=== PATIENT | male | born 1950 | race Caucasian/White ===

== ENCOUNTER → 2025-01-08 | Outpatient (CLI) | payer MEDICARE | END | disposition home or self-care (01) | LOC: LAB 11:08 | PROVIDERS: ATTEND Internal Medicine | DX: I10 Essential (primary) hypertension (principal); Z00.00 Encounter for general adult medical examination without abnormal findings | CPT/HCPCS: 36415; 84439; 84443 ==

== ENCOUNTER → 2025-01-16 | Outpatient (CLI) | payer OTHER ==
[~2025-01-16] MED LIST: AMIO200T60 PO; APIX5TAB PO; CARV12.5 PO; DOXA2TAB2 PO; DOXA4TAB3 PO; DULO40CA2 PO; FINA5TAB4 PO; HYDR12.58 PO; MELO15TA24 PO; OLME40TA PO; TADA5TAB PO; TAMS-54 PO
[2025-01-16] MEDS: LEXISCAN IV ONE (11:34)
== END | disposition home or self-care (01) ==
LOC: RAD 09:36
PROVIDERS: ATTEND Internal Medicine
DX: I34.0 Nonrheumatic mitral (valve) insufficiency (principal); I10 Essential (primary) hypertension; N28.81 Hypertrophy of kidney; R53.83 Other fatigue; Z79.899 Other long term (current) drug therapy
CPT/HCPCS: 78452; 93306; 93975; 93017; J2785; A9500

== ENCOUNTER 2025-03-06 07:06 | Day surgery (SDC) | payer OTHER ==
[~2025-03-06] VITALS: Ht 188 cm; Wt 109.8 kg
[~2025-03-06 07:06] MED LIST changes: -DOXA4TAB3 PO; +NS 1000ML 1,000 ML ONE
[2025-03-06 07:20] VITALS: BP 141/81; PULSE 51; RESP 18; TEMP 96.3; O2SAT 98
[2025-03-06] MEDS: NS 1000ML 1,000 ML IV ONE (07:35)
[2025-03-06 07:56] LABS: BASOPHIL # 0.1 10^3/uL (0.0-0.1); BASOPHIL % 0.9 % (0.2-1.2); EOSINOPHIL # 0.2 10^3/uL (0.0-0.2); EOSINOPHIL % 3.8 % (0.0-5.0); HEMATOCRIT(ML) 46.5 % (37.0-53.0); IG % 0.40 % (0.00-0.50); LYMPHOCYTES # 1.74 10^3/uL1 (1.0-4.8); LYMPHOCYTES % 31.4 % (24.0-44.0); MEAN CORP HGB 30.3 pg (26-34); MEAN CORP HGB CONCENTRATION 34.2 g/dL (33-36.5); MEAN CORP VOLUME 88.6 fL (78-100); MONOCYTES # 0.4 10^3/uL (0.3-0.8); MONOCYTES % 7.9 % (5.0-12.0); NEUTROPHIL # 3.1 10^3/uL (1.8-7.7); NEUTROPHILS % 55.6 % (41.0-85.0); RED BLOOD CELL 5.25 10^6/uL (4.50-5.90); RED CELL DISTRIBUTION WIDTH 12.8 % (11.5-14.5); WHITE BLOOD CELL 5.5 10^3/uL (4.5-11.0)
[2025-03-06 08:02] LABS: INR 1.2; PROTHROMBIN PROTIME 12.1 SEC (9.3-11.6)
[2025-03-06 08:05] LABS: ALANINE AMINOTRANSFERASE(ML) 35.0 U/L (12-78); ALBUMIN(ML) 3.6 g/dL (3.4-5.0); CREATININE SERUM 1.14 mg/dL (0.59-1.40); EST GFR, NON-AA 63.0 (>/=60)
[2025-03-06] MEDS ORDERED: DOXA4TAB3 PO (10:06)
[2025-03-06] MEDS ORDERED: AMIO200T60 PO (10:06)
== END 2025-03-06 10:18 | disposition home or self-care (01) ==
LOC: SDC 07:06
PROVIDERS: ATTEND Internal Medicine
DX: I48.0 Paroxysmal atrial fibrillation (principal); Z53.8 Procedure and treatment not carried out for other reasons; I10 Essential (primary) hypertension; G47.33 Obstructive sleep apnea (adult) (pediatric); Z82.49 Family history of ischemic heart disease and other diseases of the circulatory system; Z79.899 Other long term (current) drug therapy
CPT/HCPCS: 93005 ×2; 80053; 85025; 36415; 85610; 85730; J7030